=== PATIENT | female | born 1970 | race Caucasian/White ===

== ENCOUNTER → 2023-04-13 00:24 | Outpatient (CLI) | payer BC, SELFPAY ==
--- NOTE | 2023-04-13 | DI.CT_ITS ---
Exam(s) CT CERVICAL SPINE WO EXAM: CT CERVICAL SPINE WO CLINICAL HISTORY: CERVICAL STENOSIS,M48.02,t 1 TUMOR. TECHNIQUE: Imaging Protocol: Axial computed tomography images with coronal and sagittal reformatted images were created and reviewed COMPARISON: No exams were available for comparison FINDINGS: Bones: No fracture or dislocations are seen. There is straightening of the normal cervical lordosis. No lytic or sclerotic lesions are seen in the bones. C2-3: No focal disc herniation, central spinal canal or neural foraminal stenosis. C3-4: There is disc space narrowing at this level. Endplate osteophytes are also present. No result i n central spinal canal or neural foraminal stenosis is present. C4-5: No focal disc herniation, central spinal canal or neural foraminal stenosis. C5-6: No focal disc herniation, central spinal canal or neural foraminal stenosis. C6-7: There is disc space narrowing and small osteophytes posteriorly at C6-C7. No significant centra l spinal canal or neural foraminal stenosis is present. C7-T1: No focal disc herniation, central spinal canal or neural foraminal stenosis. Soft Tissues: On the soft tissue windows, there does appear to be ectasia of the exiting nerve root s leeves bilaterally at C6-7 and C7-T1, left greater than right. The findings appear more prominent at the left C7-T1 neural foramen. There does appear to be some remodeling of the bone. Lung apices: Unremarkable. IMPRESSION: 1. Ectasia of the exiting nerve root sleeves at C6-7 and C7-T1. An MRI of the cervical spine with con trast is recommended for better evaluation of the soft tissues in this region. 2. No lytic or sclerotic lesions seen in the cervical spine. 3. Mild degenerative changes seen throughout the cervical spine. Unexpected findings RADIATION DOSE DELIVERED: Total DLP Total DLP DATA REPOSITORY: All CT scans at this facility are submitted to the National Radiology Data Registry (NRDR) Dose Index Registry (DIR) with the [employer] ([employer]). RADIATION OPTIMIZATION: All CT scans at this facility use at least one of these dose optimization te chniques: automated exposure control; mA and/or kV adjustment per patient size (includes targeted exa ms where dose is matched to clinical indication); or iterative reconstruction.
--- NOTE | 2023-04-13 | DI.MRI_ITS ---
Exam(s) MR CERVICAL SPINE WO/W EXAM: MR CERVICAL SPINE WO/W CLINICAL HISTORY: CERVICAL STENOSIS,M48.02,T 1 tumor,primary spinal cord injury TECHNIQUE: Multiplanar multisequence MRI of the cervical spine was performed without intravenous con trast. COMPARISON: CT CT CERVICAL SPINE WO from 04/13/2023 FINDINGS: BONES: Vertebral body heights are maintained. Alignment is normal. Bone marrow signal intensity is wi thin normal limits. CERVICAL CORD: Craniovertebral junction is unremarkable. There is an enhancing dumbbell-shaped mass at the C7-T1 level part of which extends through the left neural foramen. This causes severe central canal stenosis with deviation of the cord toward the right. It measures 12 by 10 by 10 millimeters in the central canal and extends approximately 2 cm laterally through the left neural foramen with e xpansion of the foramen. There is also expansion of the right neural foramen with mild enlargement o f the exiting nerve root. Similar findings are seen at more superior levels up to C1-2.. SOFT TISSUES: Unremarkable. C2-3: No disc herniation or bulge is identified. No evidence of neural foraminal narrowing. No signi ficant central canal stenosis. C3-4: Small endplate osteophytes and mild concentric disc bulging. No evidence of neural foraminal n arrowing. No significant central canal stenosis. C4-5: No disc herniation or bulge is identified. No evidence of neural foraminal narrowing. No signif icant central canal stenosis. C5-6: No disc herniation or bulge is identified. No evidence of neural foraminal narrowing. No signif icant central canal stenosis. C6-7: No disc herniation or bulge is identified. No evidence of neural foraminal narrowing. No signif icant central canal stenosis. C7-T1: No disc herniation or bulge is identified. IMPRESSION: Large dumbbell-shaped enhancing mass at the C7-T1 level causing cord compression and extending into t he in the neural foramen. Findings are suspicious for neurofibroma or schwannoma. There is some dur al ectasia seen from C1-2 through C7-T1 foramen with enlargement of the nerve roots. 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 DATA REPOSITORY:
[2023-04-13] MEDS: Normal Saline Flush 10 ML SYR IVP (15:05)
[2023-04-13] MEDS: Gadoterate meglumine 20 ML SYRINGE 9 ML IVP (15:06)
--- NOTE | 2023-04-13 18:24 | DI.VRAD_ITS ---
PROCEDURE INFORMATION: Exam: CT Cervical Spine Without Contrast Exam date and time: 04/13/2023 1:16 PM Age: 52 years old Clinical indication: Other: Cervical stenosis, t 1 tumor TECHNIQUE: Imaging protocol: Computed tomography of the cervical spine without contrast. COMPARISON: No relevant prior studies available. FINDINGS: Bones/joints: Moderate degenerative disc bulge with mild uncovertebral spurring is present at the C3-C4 level. No other significant degenerative/arthritic change. Osseous alignment is normal. No acute fracture. Lungs: Lung apices are normal. Soft tissues: Unremarkable. IMPRESSION: No acute abnormality. Mild degenerative disc changes at C3-C4. Dictated and Authenticated by: Aj Victoria MD. Ordering:MAY Ren MD
--- NOTE | 2023-04-13 18:40 | DI.VRAD_ITS ---
Addendum created by Aj Victoria MD on 04/13/2023 7:04:00 PM EST: THIS REPORT CONTAINS FINDINGS THAT MAY BE CRITICAL TO PATIENT CARE. The findings were verbally communicated via telephone conference with Nani Nichols NP at 7:03 PM EST on 04/13/2023. The findings were acknowledged and understood. Initial report created on 04/13/2023 6:39:25 PM EST: PROCEDURE INFORMATION: Exam: MR Cervical Spine Without and With Contrast Exam date and time: 04/13/2023 3:01 PM Age: 52 years old Clinical indication: Other: Cervical stenosis, m48.02, t 1 tumor, primary spinal cord injury TECHNIQUE: Imaging protocol: Magnetic resonance imaging of the cervical spine without and with contrast. COMPARISON: CT CERVICAL SPINE WO 04/13/2023 1:16 PM FINDINGS: Bones/joints: Enhancing dumbbell-shaped mass lesion noted centered at the C7-T1 disc level occupying the left side of the central spinal canal, producing severe central canal stenosis, and extending through the left C8 neural exit foramen. Portion of the mass lesion in the central spinal canal measures 14.3 mm in greatest diameter and portion of the mass occupying of the left neural exit foramen measures approximately 15 mm in greatest diameter. Spinal cord: Normal signal. Significant cord compression of the C7-T1 disc level due to mass lesion described above. C2-C3: No significant disc bulge or herniation. No severe spinal canal stenosis. No significant neural foraminal narrowing. C3-C4: No significant disc bulge or herniation. No severe spinal canal stenosis. No significant neural foraminal narrowing. C4-C5: No significant disc bulge or herniation. No severe spinal canal stenosis. No significant neural foraminal narrowing. C5-C6: No significant disc bulge or herniation. No severe spinal canal stenosis. No significant neural foraminal narrowing. C6-C7: No significant disc bulge or herniation. No severe spinal canal stenosis. No significant neural foraminal narrowing. C7-T1: No significant disc bulge or herniation. Significant narrowing of the right C8 neural exit foramen due to mass lesion described above. Soft tissues: Otherwise unremarkable. Vasculature: Expected flow voids in the vertebral arteries. IMPRESSION: Dumbbell type mass lesion at the C7-T1 disc level producing severe central canal stenosis and narrowing of the left C8 neural exit foramen. Differential diagnosis includes spinal nerve sheath tumors (schwannoma, neurofibroma, ganglioneuroma), neuroblastoma and meningioma, depending on clinical history. Dictated and Authenticated by: Aj Victoria MD. Ordering:MAY Ren MD
== END ==
PROVIDERS: Visit Provider Neurological Surgery
DX: M48.02 Spinal stenosis, cervical region (principal)
CPT/HCPCS: 72125; 72156

== ENCOUNTER → 2023-08-18 03:04 | Outpatient (CLI) | payer BC, SELFPAY ==
[2023-08-18] MEDS: Gadoterate meglumine 20 ML VIAL 10 ML IVP (12:52)
--- NOTE | 2023-08-18 13:30 | DI.MRI_ITS ---
Exam(s) MR CERVICAL SPINE WO/W EXAM: MR CERVICAL SPINE WO/W CLINICAL HISTORY: SPINAL CORD TUMOR, D49.7 TECHNIQUE: Multiplanar multisequence MRI of the cervical spine was performed. CONTRAST MATERIAL: IV Contrast: 10 ML of Dotarem contrast administered. COMPARISON: MR MR CERVICAL SPINE WO/W from 04/13/2023 FINDINGS: BONES: Vertebral body heights are maintained. Intervertebral disc spaces are normal. Alignment is nor mal. Bone marrow signal intensity is within normal limits. There is a C7 and T1 laminectomy. CERVICAL CORD: Craniovertebral junction is unremarkable. The spinal cord is normal in size. There is hyperintense signal in the spinal cord at the C7-T1 level. There is otherwise normal signal in the spinal cord. No evidence of tonsillar ectopia. No evidence of a syrinx. SOFT TISSUES: There is a fluid collection posterior to the laminectomy defects at C7 and T1. It is 4 .7 cm in length. (Series [id number], image 10). This presumably is related to the patient's surgery. ENHANCEMENT: There has been partial resection of the tumor there was previously seen at the C7-T1 lev el. There is still seen an enhancing lesion extending into the left neural foramen at C7-T1 consiste nt with residual tumor. It measures approximately 2.2 x 1.1 cm. (Series [id number], image 13). There is no compression or significant displacement of the spinal cord. C2-3: No disc herniation or bulge is identified. No significant central spinal canal or neural forami nal stenosis. C3-4: Mild prominence of the osteophyte disc complex. No significant central spinal canal or neural foraminal stenosis C4-5: No disc herniation or bulge is identified. No significant central spinal canal or neural forami nal stenosis C5-6: No disc herniation or bulge is identified. No significant central spinal canal or neural forami nal stenosis C6-7: No disc herniation or bulge is identified. No significant central spinal canal or neural forami nal stenosis C7-T1: No disc herniation or bulge is identified. No significant central spinal canal or neural hernandez inal stenosis IMPRESSION: 1. Residual tumor seen extending into the left C7-T1 neural foramen measuring 2.2 x 1.1 cm. No signi ficant compression on the spinal cord. 2. Hyperintense signal seen in the spinal cord at C7-T1. This is nonspecific this may be postsurgica l, myelomalacia. Neoplasm is considered less likely. 3. Probable postoperative fluid collection posterior to the spinal cord at C7-T1. There is no commun ication with the spinal canal. DATA REPOSITORY:
--- NOTE | 2023-08-18 16:43 | DI.VRAD_ITS ---
PROCEDURE INFORMATION: Exam: MR Cervical Spine Without and With Contrast Exam date and time: 08/18/2023 12:34 PM Age: 52 years old Clinical indication: Other: Spinal cord surgery, tumor removal surgery 05/24/23; Prior surgery; Surgery date: 1-6 months TECHNIQUE: Imaging protocol: Magnetic resonance imaging of the cervical spine without and with contrast. Contrast material: DOTAREM; Contrast volume: 10 ml; Contrast route: INTRAVENOUS (IV); COMPARISON: MR CERVICAL SPINE WO/W 04/13/2023 3:01 PM FINDINGS: Bones/joints: No worrisome bone lesions. Normal vertebral alignment. No fracture.. Spinal cord: Interval postoperative changes of partial resection of the tumor on the left side of C7-T1 in the central canal and extending into the neural foramen. Focal abnormal signal in the central spinal cord at the level of C7-T1. No cord compression. C2-C3: No significant disc bulge or herniation. No severe spinal canal stenosis. No significant neural foraminal narrowing. C3-C4: Loss of disc height. Generalized disc bulge with circumferential endplate osteophyte formation. Normal facets. Patent central canal and bilateral neural foramen.. C4-C5: No significant disc bulge or herniation. No severe spinal canal stenosis. No significant neural foraminal narrowing. C5-C6: No significant disc bulge or herniation. No severe spinal canal stenosis. No significant neural foraminal narrowing. C6-C7: No significant disc bulge or herniation. No severe spinal canal stenosis. No significant neural foraminal narrowing. C7-T1: C7-T1 laminectomies. There remains mass causing expansion of the left C7-T1 neural foramen, likely due to residual neurogenic tumor. The this involves an area measuring approximately 1 cm by 2.2 cm in AP and transverse dimension and 1.3 cm in craniocaudad dimension. Mild epidural enhancement. Soft tissues: Fluid collection in the laminectomy defect measuring approximately 3.3 x 1.2 x 4.7 cm in transverse, AP, and craniocaudad dimension. Marked edema in the posterior paraspinal muscles of lower cervical and upper thoracic spine.. Vasculature: Expected flow voids in the vertebral arteries. IMPRESSION: 1. Interval resection of the portion of the intradural mass on the left side of the C7-T1 2. Tumor remains in the left C7-T1 neural foramen 3. New focus of increased T2 signal in the central spinal canal at C7-T1 consistent with postop change 4. Postoperative fluid collection posterior to the C7-T1 laminectomy defects. Dictated and Authenticated by: Ursula Freeman MD. Ordering:MAY Ren MD
== END ==
PROVIDERS: Visit Provider Neurological Surgery
DX: D49.7 Neoplasm of unspecified behavior of endocrine glands and other parts of nervous system (principal); Z98.890 Other specified postprocedural states
CPT/HCPCS: 72156